=== PATIENT | male | born 1965 | race Caucasian/White ===

== ENCOUNTER → 2017-06-22 09:48 | Outpatient (CLI) | payer OTHER, SELFPAY ==
[2017-06-22 11:07] LABS: Alanine Aminotransferase 37 U/L (12-78); Albumin Level 4.1 gm/dL (3.4-5.0); Albumin/Globulin Ratio 1.5 (1.1-1.8); Alkaline Phosphatase 48 U/L (46-116); Anion Gap 11.5 mEq/L (5-15); Aspartate Amino Transferase 16 U/L (15-37); Bilirubin,Total 0.5 mg/dL (0.2-1.0); Blood Urea Nitrogen 10 mg/dL (7-18); Calcium 8.8 mg/dL (8.5-10.1); Carbon Dioxide 32 mmol/L (21.0-32.0); Chloride 106 mmol/L (98-107); Chol/HDL Ratio 2.1 (1-3.5); Cholesterol 165 mg/dL (140-200); Creatinine,Serum 0.78 mg/dL (0.70-1.30); Estimated Glomerular Filt Rate 104 ml/min (>60); GFR (African American) 126 ML/MIN (>60); Globulin 2.7 gm/dl (1.3-3.2); Glucose 86 mg/dL (74-106); HDL Cholesterol 79 mg/dL (27-67); LDL Cholesterol 75 mg/dL (0-130); Potassium 4.5 mmoL/L (3.5-5.1); Prostate Specific Ag Screen 0.8 ng/mL (0.0-4.0); Sodium 145 mmol/L (136-145); Total Protein,Serum 6.8 gm/dL (6.4-8.2); Triglycerides 54 mg/dL (30-200); VLDL Cholesterol 11 mg/dL (0-40)
== END ==
PROVIDERS: PCP Internal Medicine Adolescent Medicine; Visit Provider Internal Medicine Adolescent Medicine
DX: E78.5 Hyperlipidemia, unspecified (principal); Z00.00 Encounter for general adult medical examination without abnormal findings
CPT/HCPCS: 36415; 80053; 80061; G0103

== ENCOUNTER → 2017-11-11 15:46 | Outpatient (POV) | payer OTHER, SELFPAY | PROVIDERS: Visit Provider Physician Assistant | DX: Z00.00 Encounter for general adult medical examination without abnormal findings (principal) ==

== ENCOUNTER → 2018-01-06 13:01 | Outpatient (CLI) | payer OTHER, SELFPAY | PROVIDERS: PCP Internal Medicine Adolescent Medicine; Visit Provider Internal Medicine Adolescent Medicine | DX: G47.33 Obstructive sleep apnea (adult) (pediatric) (principal); G47.10 Hypersomnia, unspecified; R06.83 Snoring | CPT/HCPCS: 95806 ==

== ENCOUNTER → 2018-01-27 10:44 | Outpatient (CLI) | payer OTHER, SELFPAY ==
--- NOTE | 2018-01-27 10:47 | MR_ITS ---
MR cervical spine wo con, MR 3-d myelogram/MRCP ITS.REASON: CERVICAL RADICULOPATHY left-sided neck pain, left arm numbness and tingling ORDERING PHYSICIAN: Jose Farrell MD PATIENT AGE: 52 years Comparison: TECHNIQUE: Standard multiplanar multiecho sequences are performed without contrast. 3-D MIP and myelographic images are also rendered and reviewed FINDINGS: There is reversal of the lower cervical lordosis. This may be due to patient positioning or muscle spasm. The craniocervical junction has an unremarkable appearance. 3: Unremarkable. C3-C4: Unremarkable. C4-C5: Unremarkable. C5-C6: Degenerative disc disease with minimal bulging disc and uncovertebral hypertrophic change causing mild right and moderate left foraminal narrowing. There is borderline narrowing of the canal at this level at 11 mm without cord impingement . C6-C7: Degenerative disc disease with bulging disc and bilateral uncovertebral hypertrophy with canal stenosis of 10 mm without cord impingement. Moderate severe bilateral foraminal narrowing greater on the left.. Moderate bilateral lateral recess narrowing also present greater on the left. C7-T1: Unremarkable. No disc herniation evident. The spinal cord has unremarkable signal intensity. IMPRESSION: 1. C5-C6: Degenerative disc disease with minimal bulging disc and uncovertebral hypertrophic change causing mild right and moderate left foraminal narrowing. There is borderline narrowing of the canal at this level at 11 mm without cord impingement . 2. C6-C7: Degenerative disc disease with bulging disc and bilateral uncovertebral hypertrophy with canal stenosis of 10 mm without cord impingement. Moderate severe bilateral foraminal narrowing greater on the left.. Moderate bilateral lateral recess narrowing also present greater on the left. 3. No disc herniation
== END ==
PROVIDERS: Family Provider Internal Medicine Adolescent Medicine; PCP Internal Medicine Adolescent Medicine; Visit Provider Internal Medicine Adolescent Medicine
DX: M54.12 Radiculopathy, cervical region (principal)
CPT/HCPCS: 72141; 76376

== ENCOUNTER → 2018-06-03 08:16 | Outpatient (POV) | payer OTHER, SELFPAY | PROVIDERS: Visit Provider Dermatology | DX: Z00.00 Encounter for general adult medical examination without abnormal findings (principal) ==

== ENCOUNTER → 2018-08-11 07:38 | Outpatient (CLI) | payer OTHER, SELFPAY ==
[2018-08-11 08:15] LABS: Basophils # 0.1 K/mm3 (0-0.2); Eosinophils # 0.5 K/mm3 (0.0-0.4); Eosinophils % 11.8 % (0.1-12.0); Hematocrit 42.3 % (42.0-52.0); Hemoglobin 14.4 g/dL (14.1-18.0); Lymphocytes # 1.2 K/mm3 (0.7-4.5); Lymphocytes % 26.9 % (10-50); Mean Corpuscular Hemoglobin 31.3 pg (27.0-31.2); Mean Corpuscular Volume 92.1 fl (80-94); Mean Platelet Volume 7.4 fl (7.4-10.4); Monocytes # 0.3 K/mm3 (0.1-1.0); Monocytes % 5.7 % (1.7-9.3); Neutrophils # 2.4 K/mm3 (1.8-7.8); Neutrophils % 54.5 % (37.0-80.0); Platelet Count 201 K/mm3 (142-424); Red Cell Distribution Width 12.6 % (11.5-17.5); White Blood Count 4.5 K/mm3 (4.8-10.8)
[2018-08-11 08:53] LABS: Alanine Aminotransferase 35 U/L (12-78); Albumin Level 3.8 gm/dL (3.4-5.0); Albumin/Globulin Ratio 1.6 (1.1-1.8); Alkaline Phosphatase 43 U/L (46-116); Aspartate Amino Transferase 14 U/L (15-37); Bilirubin,Total 0.7 mg/dL (0.2-1.0); Blood Urea Nitrogen 11 mg/dL (7-18); Calcium 8.6 mg/dL (8.5-10.1); Carbon Dioxide 31 mmol/L (21.0-32.0); Chloride 106 mmol/L (98-107); Chol/HDL Ratio 2.6 (1-3.5); Cholesterol 164 mg/dL (140-200); Creatinine,Serum 0.77 mg/dL (0.70-1.30); Estimated Glomerular Filt Rate 105 ml/min (>60); GFR (African American) 127 ML/MIN (>60); Globulin 2.4 gm/dl (1.3-3.2); Glucose 102 mg/dL (74-106); HDL Cholesterol 62 mg/dL (27-67); LDL Cholesterol 87 mg/dL (0-130); Sodium 143 mmol/L (136-145); Thyroid Stimulating Hormone 1.86 uIU/ml (0.358-3.740); Total Protein,Serum 6.2 gm/dL (6.4-8.2); Triglycerides 76 mg/dL (30-200); VLDL Cholesterol 15 mg/dL (0-40)
[2018-08-11 12:50] LABS: Prostate Specific Ag Screen 0.7 ng/mL (0.0-4.0)
== END ==
PROVIDERS: Visit Provider Internal Medicine Adolescent Medicine
DX: Z00.00 Encounter for general adult medical examination without abnormal findings (principal); E78.5 Hyperlipidemia, unspecified; G47.30 Sleep apnea, unspecified
CPT/HCPCS: 36415; 80053; 80061; 84443; 85025; G0103

== ENCOUNTER → 2019-06-09 07:27 | Outpatient (CLI) | payer OTHER, SELFPAY ==
[2019-06-09 08:38] LABS: Basophils # 0.1 K/mm3 (0-0.2); Basophils % 1.2 % (0.1-2.0); Eosinophils # 0.4 K/mm3 (0.0-0.4); Hematocrit 47.5 % (42.0-52.0); Hemoglobin 15.6 g/dL (14.1-18.0); Lymphocytes # 1.2 K/mm3 (0.7-4.5); Mean Corpuscular HGB Conc 32.8 g/dL (31.8-35.4); Mean Corpuscular Hemoglobin 30.8 pg (27.0-31.2); Mean Corpuscular Volume 93.8 fl (80-94); Mean Platelet Volume 7.9 fl (7.4-10.4); Monocytes # 0.3 K/mm3 (0.1-1.0); Monocytes % 5.3 % (1.7-9.3); Neutrophils % 61.6 % (37.0-80.0); Platelet Count 234 K/mm3 (142-424); Red Blood Count 5.06 M/mm3 (4.60-6.20); Red Cell Distribution Width 12.7 % (11.5-17.5); White Blood Count 4.9 K/mm3 (4.8-10.8)
[2019-06-09 09:54] LABS: Alanine Aminotransferase 40 U/L (21-72); Albumin/Globulin Ratio 1.5 (1.1-1.8); Alkaline Phosphatase 49 U/L (46-116); Anion Gap 12.3 mEq/L (5-15); Aspartate Amino Transferase 25 U/L (15-37); Bilirubin,Total 0.7 mg/dL (0.2-1.0); Blood Urea Nitrogen 14 mg/dL (7-18); Calcium 8.9 mg/dL (8.5-10.1); Carbon Dioxide 31 mmol/L (21.0-32.0); Chloride 106 mmol/L (98-107); Chol/HDL Ratio 3.4 (1-3.5); Cholesterol 213 mg/dL (140-200); Creatinine,Serum 0.92 mg/dL (0.70-1.30); Estimated Glomerular Filt Rate 85 ml/min (>60); GFR (African American) 103 ML/MIN (>60); Globulin 2.7 gm/dl (1.3-3.2); Glucose 90 mg/dL (74-106); HDL Cholesterol 63 mg/dL (27-67); LDL Cholesterol 109 mg/dL (0-130); Potassium 4.3 mmoL/L (3.5-5.1); Sodium 145 mmol/L (137-145); Total Protein,Serum 6.7 g/dL (6.4-8.2); Triglycerides 207 mg/dL (30-200); VLDL Cholesterol 41 mg/dL (0-40)
== END ==
PROVIDERS: Visit Provider Internal Medicine Adolescent Medicine
DX: Z00.00 Encounter for general adult medical examination without abnormal findings (principal); E78.5 Hyperlipidemia, unspecified
CPT/HCPCS: 36415; 80053; 80061; 85025; G0103

== ENCOUNTER → 2019-06-09 08:10 | Outpatient (POV) | payer OTHER, SELFPAY | PROVIDERS: Visit Provider Dermatology | DX: Z00.00 Encounter for general adult medical examination without abnormal findings (principal) ==

== ENCOUNTER → 2019-09-01 08:04 | Outpatient (POV) | payer OTHER, SELFPAY | PROVIDERS: PCP Internal Medicine Adolescent Medicine; Visit Provider Physician Assistant | DX: Z00.00 Encounter for general adult medical examination without abnormal findings (principal) ==

== ENCOUNTER → 2020-07-12 08:45 | Outpatient (POV) | payer OTHER, SELFPAY | PROVIDERS: Visit Provider Dermatology | DX: Z00.00 Encounter for general adult medical examination without abnormal findings (principal) ==

== ENCOUNTER → 2020-11-12 11:27 | Outpatient (CLI) | payer OTHER, SELFPAY | PROVIDERS: Visit Provider Nurse Practitioner Family | DX: M70.32 Other bursitis of elbow, left elbow (principal) | CPT/HCPCS: 87070; 87205 ==

== ENCOUNTER → 2021-01-03 10:51 | Outpatient (CLI) | payer OTHER, SELFPAY ==
[2021-01-03 11:41] LABS: Chloride 102 mmol/L (98-107)
[2021-01-03 11:42] LABS: Potassium 4.8 mmoL/L (3.5-5.1); Sodium 141 mmol/L (136-145)
[2021-01-03 11:44] LABS: Alanine Aminotransferase 27 U/L (12-78); Albumin Level 4.4 g/dl (3.5-5.0); Albumin/Globulin Ratio 1.7 (1.1-1.8); Alkaline Phosphatase 57 U/L (38-126); Anion Gap 11.8 mEq/L (5-15); Aspartate Amino Transferase 30 U/L (17-59); Bilirubin,Total 0.7 mg/dl (0.2-1.3); Blood Urea Nitrogen 12 mg/dl (9-20); Carbon Dioxide 32 mmol/L (22.0-30.0); Estimated Glomerular Filt Rate 116 ml/min (>60); GFR (African American) 141 ML/MIN (>60); Globulin 2.6 g/dL (1.3-3.2)
[2021-01-03 11:45] LABS: Basophils # 0.1 K/mm3 (0-0.2); Basophils % 1.3 % (0.1-2.0); Calcium 9.4 mg/dl (8.4-10.2); Chol/HDL Ratio 2.8 (1-3.5); Cholesterol 208 mg/dl (140-200); Eosinophils # 0.4 K/mm3 (0.0-0.4); Eosinophils % 6.5 % (0.1-12.0); Glucose 80 mg/dl (74-100); HDL Cholesterol 74 mg/dl (40-60); Hematocrit 48.2 % (42.0-52.0); Hemoglobin 15.8 g/dL (14.1-18.0); Lymphocytes # 1.2 K/mm3 (0.7-4.5); Lymphocytes % 22.8 % (10-50); Mean Corpuscular HGB Conc 32.9 g/dL (31.8-35.4); Mean Corpuscular Volume 97.4 fl (80-94); Mean Platelet Volume 7.9 fl (7.4-10.4); Monocytes # 0.4 K/mm3 (0.1-1.0); Monocytes % 6.7 % (1.7-9.3); Neutrophils # 3.4 K/mm3 (1.8-7.8); Neutrophils % 62.7 % (37.0-80.0); Platelet Count 254 K/mm3 (142-424); Red Blood Count 4.95 M/mm3 (4.60-6.20); Triglycerides 101 mg/dl (30-150); VLDL Cholesterol 20 mg/dL (0-40); White Blood Count 5.4 K/mm3 (4.8-10.8)
[2021-01-03 11:56] LABS: Direct LDL Cholesterol 107.24 mg/dL (100-129)
[2021-01-04 12:21] LABS: PSA, Free 0.39 ng/mL; Prostate Specific Ag 0.9 ng/mL (0.0-4.0)
== END ==
PROVIDERS: Visit Provider Internal Medicine Adolescent Medicine
DX: Z00.00 Encounter for general adult medical examination without abnormal findings (principal); E78.5 Hyperlipidemia, unspecified
CPT/HCPCS: 36415; 80053; 80061; 84153; 84154; 85025

== ENCOUNTER → 2022-10-11 10:45 | Outpatient (CLI) | payer OTHER, SELFPAY ==
--- NOTE | 2022-10-11 10:52 | XR_ITS ---
FINAL REPORT CLINICAL HISTORY: ARTHRITIS FINDINGS: LEFT KNEE: Three views of the left knee were obtained. There is no acute fracture or dislocation. There is mild degenerative change of the medial compartment. There is a moderate sized joint effusion present. Soft tissues are unremarkable. IMPRESSION: Mild degenerative change of the medial compartment with a moderate sized joint effusion present. Reviewed, Interpreted and Dictated by Vipul Arizmendi III, MD Transcribed by Lovely Rosales Authenticated and [facility]
--- NOTE | 2022-10-11 10:52 | XR_ITS ---
FINAL REPORT CLINICAL HISTORY: ARTHRITIS FINDINGS: Three views of the right knee reveal no evidence of fracture or dislocation. The bony alignment is normal. Mild tricompartment degenerative change is present. There is a moderate sized joint effusion present. No localized soft tissue abnormality is identified. IMPRESSION: Mild tricompartment degenerative change of the knee with a moderate sized joint effusion. Reviewed, Interpreted and Dictated by Vipul Arizmendi III, MD Transcribed by Lovely Rosales Authenticated and [facility]
== END ==
PROVIDERS: PCP Internal Medicine Adolescent Medicine; Visit Provider Internal Medicine Adolescent Medicine
DX: M17.0 Bilateral primary osteoarthritis of knee (principal)
CPT/HCPCS: 73562

== ENCOUNTER → 2023-07-22 09:06 | Outpatient (CLI) | payer BC, SELFPAY | PROVIDERS: PCP Nurse Practitioner Family; Visit Provider Nurse Practitioner Family | DX: G47.33 Obstructive sleep apnea (adult) (pediatric) (principal); R06.83 Snoring | CPT/HCPCS: G0399 ==

== ENCOUNTER 2023-10-24 12:42 | Outpatient (CLI) | payer BC, SELFPAY ==
--- NOTE | 2023-10-24 12:50 | XR_ITS ---
FINAL REPORT CLINICAL HISTORY: right knee pain COMPARISON: None FINDINGS: Three views of the right knee were obtained. There is no acute fracture or dislocation. The joint spaces are well preserved. There is no acute soft tissue abnormality. IMPRESSION: No acute abnormality identified. Reviewed, Interpreted and Dictated by Sandy Tran MD Transcribed by Galilea Rodriguez Authenticated and [facility]
--- NOTE | 2023-10-24 12:50 | XR_ITS ---
FINAL REPORT CLINICAL HISTORY: left knee pain COMPARISON: None FINDINGS: Three views of the left knee were obtained. There is no acute fracture or dislocation. There are mild degenerative changes, greatest in the medial compartment. There is no acute soft tissue abnormality. IMPRESSION: Degenerative changes without acute abnormality identified. Reviewed, Interpreted and Dictated by Sandy Tran MD Transcribed by Galilea Rodriguez Authenticated and [facility]
== END 2023-10-24 23:59 | disposition home or self-care (01) ==
PROVIDERS: PCP Internal Medicine Adolescent Medicine; Visit Provider Physician Assistant Surgical
DX: M25.562 Pain in left knee (principal); M25.561 Pain in right knee
CPT/HCPCS: 73562

== ENCOUNTER 2024-02-04 11:21 | Outpatient (POV) | payer SELFPAY | END 2024-02-04 23:59 | disposition home or self-care (01) | LOC: SC 11:21 | PROVIDERS: Visit Provider Dermatology | DX: Z00.00 Encounter for general adult medical examination without abnormal findings (principal) ==

== ENCOUNTER 2024-02-17 13:15 | Day surgery (SDC) | payer BC, SELFPAY ==
[2024-02-11 15:38] VITALS: BMI 27.7
[2024-02-17 13:33] VITALS: BP 138/84; PULSE 67; RESP 18; TEMP 36.5; O2SAT 100
[2024-02-17] MEDS: LACTATED RINGERS 1000ML 1,000 ML 25 ML IV (13:45)
--- NOTE | 2024-02-17 13:51 | P.HP_ITS ---
[facility] Disclaimer: The information contained in this section may have been updated after the patient was seen, as this information can be updated by other users. Medical History (Updated 02/17/24 @ 14:39 by Jose Allen II, MD) HLD (hyperlipidemia) ROGER (obstructive sleep apnea) Surgical History History of colonoscopy History of removal of testicle Family History Other Cancer Coronary artery disease Heart attack Hyperlipidemia Social History (Updated 02/17/24 @ 13:41 by Ana Rosa Ward, ELROY) Smoking Status: Former smoker smoking status stop date: 15 yrs ago alcohol intake: never substance use type: denies use current occupational status: employed Travel in the last 8 weeks: Inside the [place] household members: spouse housing: house marital status: number of children: 4 caffeine: Yes Other Medical History Have you received the Pneumonia Vaccine: No Review of Systems Review of Systems Review of systems (narrative): Negative *Cardiovascular Comments: Negative *Gastrointestinal Comments: Negative *Genitourinary Comments: Negative *Musculoskeletal Comments: Negative *Neurologic Comments: Negative Meds Home Medications and Allergies Home Medications ?Medication ?Instructions ?Recorded ?Confirmed ?Type ezetimibe 10 mg tablet (Zetia) 10 mg PO DAILY 11/06/22 02/17/24 History simvastatin 40 mg tablet 40 mg PO DAILY 11/06/22 02/17/24 History ascorbate calcium (vitamin C) 500 500 mg PO DAILY 08/08/23 02/17/24 History mg tablet aspirin 81 mg tablet,delayed 81 mg PO DAILY 08/08/23 02/17/24 History release (Adult Low Dose Aspirin) eszopiclone 1 mg tablet (Lunesta) 1 mg PO HS 08/08/23 02/17/24 History bimligfn-be-eehzl 300 mcg-K 60 1 tab PO DAILY 08/08/23 02/17/24 History mcg-lycop 600 mcg-lutein 300 mcg tablet (Centrum Silver Men) sod picosulf 10 mg-magnes 3.5 175 ml PO DAILY Bowel Prep 2 doses 02/07/24 Rx gram-citric 12 gram/175 mL oral #350 mL solution (Clenpiq) New Prescriptions to Start Prescriptions: Allergies Allergy/AdvReac Type Severity Reaction Status Date / Time No Known Allergies Allergy Verified 02/17/24 13:31 Exam Data for Last 24 hours Vital signs and Labs for Last 24 Hours: Temp Pulse Resp BP Pulse Ox O2 Del Method 97.7 F 67 18 138/84 100 Room Air 02/17/24 13:33 02/17/24 13:33 02/17/24 13:33 02/17/24 13:33 02/17/24 13:33 02/17/24 13:33 *Routine HEENT Exam Head: Present normocephalic Eye: Present EOMI and PERRL ENT: Present mucous membranes moist *Routine Neck Exam Neck: Present supple *Routine Respiratory Exam Respiratory: Present CTA bilaterally *Routine Cardiovascular Exam Cardiovascular: Present RRR *Routine Abdominal Exam Abdominal: Present soft and normoactive bowel sounds; Absent tenderness *Routine Rectal Exam Rectal:: deferred *Routine Genitalia Exam Genitalia:: deferred *Routine Extremities Exam Extremities: Absent cyanosis, clubbing or edema *Routine Skin Exam Skin: Present warm; Absent rash *Routine Neurological Exam Neurological: Present alert and oriented X3
--- NOTE | 2024-02-17 14:24 | EXP.ANES.CKL ---
[facility] Disclaimer: The information contained in this section may have been updated after the patient was seen, as this information can be updated by other users. Medical History HLD (hyperlipidemia) ROGER (obstructive sleep apnea) Surgical History History of colonoscopy History of removal of testicle Family History Other Cancer Coronary artery disease Heart attack Hyperlipidemia Social History (Updated 02/17/24 @ 13:41 by Ana Rosa Ward RN) Smoking Status: Former smoker smoking status stop date: 15 yrs ago alcohol intake: never substance use type: denies use current occupational status: employed Travel in the last 8 weeks: Inside the [place] household members: spouse housing: house marital status: number of children: 4 caffeine: Yes [facility] Anesthesia Checklist Patient Identification Patient Identification: Arm Band Structural Data Admitted From: Home Planned Operative Procedure/s: Colonoscopy Consent for Planned Operative Procedure(s) Verified: Yes Verified Documents: Surgical Consent and History and Physical NPO Status Verified Time NPO: 00:00 Additional verifications Anesthesia Reactions: No Airway Assessment Mallampati Score:: Class II C-Spine Mobility Assessed: Yes TMJ Mobility Assessed: Yes Dentition: Good Dentition Neurological Assessment Level of Consciousness: Awake, Alert and Appropriate Anesthesia Plan Anesthesia Risk discussed: Yes Anesthesia Plan: Verified ASA Class: II Anesthesia Type: MAC
[2024-02-17 14:32] VITALS: O2SAT 100
--- NOTE | 2024-02-17 14:38 | P.HP_ITS ---
History of Present Illness *Admission Date: 02/17/24 *Reason for visit:: Screening *History of present illness: Mr. Mcdaniels is a 58-year-old gentleman who is here for screening colonoscopy. His last colonoscopy was 10 years ago. The examination is deemed medically necessary for screening. The patient has been seen, interviewed and examined prior to the procedure by both myself and the anesthesia provider. [facility] Disclaimer: The information contained in this section may have been updated after the patient was seen, as this information can be updated by other users. Medical History (Updated 02/17/24 @ 14:39 by Jose Allen II, MD) HLD (hyperlipidemia) ROGER (obstructive sleep apnea) Surgical History History of colonoscopy History of removal of testicle Family History Other Cancer Coronary artery disease Heart attack Hyperlipidemia Social History (Updated 02/17/24 @ 13:41 by Ana Rosa Ward RN) Smoking Status: Former smoker smoking status stop date: 15 yrs ago alcohol intake: never substance use type: denies use current occupational status: employed Travel in the last 8 weeks: [place] the [place] household members: spouse housing: house marital status: number of children: 4 caffeine: Yes Other Medical History Have you received the Pneumonia Vaccine: No Review of Systems Review of Systems Review of systems (narrative): Negative *Cardiovascular Comments: Negative *Gastrointestinal Comments: Negative *Genitourinary Comments: Negative *Musculoskeletal Comments: Negative *Neurologic Comments: Negative Meds Home Medications and Allergies Home Medications ?Medication ?Instructions ?Recorded ?Confirmed ?Type ezetimibe 10 mg tablet (Zetia) 10 mg PO DAILY 11/06/22 02/17/24 History simvastatin 40 mg tablet 40 mg PO DAILY 11/06/22 02/17/24 History ascorbate calcium (vitamin C) 500 500 mg PO DAILY 08/08/23 02/17/24 History mg tablet aspirin 81 mg tablet,delayed 81 mg PO DAILY 08/08/23 02/17/24 History release (Adult Low Dose Aspirin) eszopiclone 1 mg tablet (Lunesta) 1 mg PO HS 08/08/23 02/17/24 History rtmxjiin-ae-dznqi 300 mcg-K 60 1 tab PO DAILY 08/08/23 02/17/24 History mcg-lycop 600 mcg-lutein 300 mcg tablet (Centrum Silver Men) sod picosulf 10 mg-magnes 3.5 175 ml PO DAILY Bowel Prep 2 doses 02/07/24 Rx gram-citric 12 gram/175 mL oral #350 mL solution (Clenpiq) New Prescriptions to Start Prescriptions: Allergies Allergy/AdvReac Type Severity Reaction Status Date / Time No Known Allergies Allergy Verified 02/17/24 13:31 Exam Data for Last 24 hours Vital signs and Labs for Last 24 Hours: Temp Pulse Resp BP Pulse Ox O2 Del Method O2 Flow Rate 97.7 F 67 18 138/84 100 Nasal Cannula 5 02/17/24 13:33 02/17/24 13:33 02/17/24 13:33 02/17/24 13:33 02/17/24 13:33 02/17/24 14:32 02/17/24 14:32 *Routine HEENT Exam Head: Present normocephalic Eye: Present EOMI and PERRL ENT: Present mucous membranes moist *Routine Neck Exam Neck: Present supple *Routine Respiratory Exam Respiratory: Present CTA bilaterally *Routine Cardiovascular Exam Cardiovascular: Present RRR *Routine Abdominal Exam Abdominal: Present soft and normoactive bowel sounds; Absent tenderness *Routine Rectal Exam Rectal:: deferred *Routine Genitalia Exam Genitalia:: deferred *Routine Extremities Exam Extremities: Absent cyanosis, clubbing or edema *Routine Skin Exam Skin: Present warm; Absent rash *Routine Neurological Exam Neurological: Present alert and oriented X3 Assessment and Plan *Assessment and plan (1) Screening for colon cancer: Status: Acute Category: Medical Code(s): Z12.11 - Encounter for screening for malignant neoplasm of colon Plan A/P: 1. Screening for colon cancer is the preprocedural diagnosis. The patient will be anesthetized/sedated using MAC sedation. The patient has been seen and examined. Cardiac and lung assessment prior to the examination is stable. Proceed with planned colonoscopy
--- NOTE | 2024-02-17 14:56 | HMH.PROCNOTE ---
[facility] Procedure Note Date: 02/17/24 Time: 14:56 Procedure Note:: Colonoscopy Procedure Report: Colonoscopy with cold snare polypectomy and Endo Clip placement Endoscopist: Jose Allen II, MD Referring physician: Jose Farrell M.D. Date of Procedure: February 17, 2024 Equipment: Olympus 190 variable stiffness pediatric colonoscope Sedation: MAC sedation Indication: Mr. Mcdaniels is a 58-year-old gentleman who is here for follow-up screening/surveillance colonoscopy. His last colonoscopy was 10 years ago. He reports no abdominal pain, weight loss, change in his bowel habits or rectal bleeding. He reports no family history of colon cancer. Procedure: Prior to the procedure, a history and physical exam was performed, and patient's medications and allergies were reviewed. The risks, benefits and alternatives of the sedation and procedure were discussed with the patient. All questions were answered and informed consent was obtained. The patient was brought to the procedure room. Patient identification and proposed procedure were verified by the physician and the nurse. The patient was placed in a left lateral decubitus position and the scope was passed under direct vision. Throughout the procedure, the patient's blood pressure, pulse, and oxygen saturations were monitored continuously. The colonoscopy was accomplished without difficulty. The patient tolerated the procedure well. Findings: On digital rectal examination there was normal rectal tone. There were no external hemorrhoids. The colonoscope was introduced through the anal canal to the rectum and advanced to the cecum. The ileocecal valve and appendiceal orifice were identified. The scope was advanced a short distance into the ileum which appeared grossly normal. The scope was then withdrawn into the colon. There were 2 diminutive 3 mm polyps in the transverse colon removed via cold snare polypectomy. There was some minor heme at the polypectomy site of the second removed polyp and 2 endoclips were placed over the polypectomy site with excellent hemostasis. The remaining cecum, ascending, transverse, descending, sigmoid and rectum were grossly normal. There were no mucosal abnormalities identified. Upon retroflexion within the rectum there were grade 2 internal hemorrhoids.The preparation was excellent throughout with [place] Preparation Score of 9. The cecal time was 11 minutes. Impression: 1. Diminutive 3 mm transverse colon polyps x 2 2. Grade 2 internal hemorrhoids Plan: I will follow-up the polyp histology and recommend repeat surveillance colonoscopy again in 7 to 10 years. I would encourage psyllium bulking fiber supplementation on a maintenance basis.
[2024-02-17 15:01] VITALS: BP 125/79; PULSE 75; RESP 18; TEMP 36.6; O2SAT 97
[2024-02-17 15:11] VITALS: BP 137/99; PULSE 72; RESP 18; O2SAT 95
[2024-02-17 15:21] VITALS: BP 138/86; PULSE 62; RESP 18; O2SAT 98
[2024-02-17 15:31] VITALS: BP 138/88; PULSE 60; RESP 18; O2SAT 97
== END 2024-02-17 15:31 | disposition home or self-care (01) ==
PROVIDERS: PCP Internal Medicine Adolescent Medicine; Visit Provider Internal Medicine Gastroenterology
PROC: (CPT 45385; principal; 2024-02-17 14:30)
DX: K63.5 Polyp of colon (principal); K64.1 Second degree hemorrhoids; Z12.11 Encounter for screening for malignant neoplasm of colon
CPT/HCPCS: 45385; J7120

== ENCOUNTER 2024-04-13 07:18 | Outpatient (CLI) | payer BC, SELFPAY ==
--- NOTE | 2024-04-13 | CA_ITS ---
APPROVED REPORT Exam: Exercise Treadmill Technologist: Sara Graf Ht: 6 ft 2 in Wt: 223 lbs BSA: 2.28 m2 HR: 77 bpm Stress Test Details HR Resting HR: 77 bpm Max Heart Rate (APMHR): 160.788410 bpm Max HR Achieved: 147 bpm Target HR (85% APMHR): 136.478354 bpm % of APMHR: 91.88 Recovery HR: 98 bpm BP Resting BP: 140.0/95.0 mmHg Max BP: 177.0/97.0 mmHg Recovery BP: 177.0/97.0 mmHg ECG Resting ECG: NSR Clinical Highest Stage Achieved: IV Stress ECG Conclusion Max HR: 158 % of PM: 99 Max BP: 158/100 METs: 10.0 Test stopped due to: Leg pain/knee pain Symptoms: no CP. Arrhythmias/Ectopy: Occasional PVC's. ST-T Changes: <1.5mm ST Segment changes. Conclusion: Negative stress test. Electronically signed by : Inga Newton MD 04/13/2024 11:44:07
--- NOTE | 2024-04-13 07:19 | NM_ITS ---
APPROVED REPORT Exam: Nuclear Stress Test Indication: hyperlipidemia, fm hx, c.p., abn ekg Patient Location: Outpatient Stress Tech: Sara Tsang [place] Tech:WINIFRED Weathers RT (R)(N)(M) Ht: 6 ft 1 in Wt: 210 lbs HR: 77 bpm BP: 140/95 mmHg BSA: 2.20 m2 TID: 1.06 BMI: 27.7 History: hyperlipidemia, fm hx, c.p., abn ekg Procedure: Patient exercised on Roe protocol 10:00 minutes and sec, resting heart rate 77 bpm, resting blood pressure 140/95 mmHg, with exercise maximum heart rate achived was 158 bpm which is 99 % of the maximum predicted heart rate and blood pressure was 158/100 mmHg. Test was stopped due to fatigue. Patient denied any complaint of chest pain. Patient has Average exercise capacity, achieved 12.1 METs of workload on treadmill, the blood pressure response to exercise was normal. Cardiac Stress and Resting SPECT Images: Cardiac Stress and Resting SPECT images were obtained using technetium 99m Myoview 31.1 mCi stress and 10.76 mCi at rest. Resting and stress imaging in supine and prone positions demonstrate no evidence of fixed or reversible perfusion defects. Gated imaging demonstrates normal global and regional LV systolic function. LVEF is calculated at 52%. Conclusion: No evidence of fixed or reversible perfusion defects. Gated imaging demonstrates normal global and regional LV systolic function. LVEF is calculated at 52%. Electronically signed by : Inga Newton MD 04/13/2024 11:42:44
--- NOTE | 2024-04-13 07:19 | CA_ITS ---
APPROVED REPORT EXAM: Comprehensive 2D, Doppler, and color-flow Echocardiogram Power Reactor Supervisor: Lillian Cerna RDCS Ht: 6 ft 0 in Wt: 223lbs BSA: 2.23 BP: 149/103 mmHg Indications: ABN EKG,HTN,CP M-Mode Dimensions RVDd 3.14 cm (0.9-2.6) LA Diam 4.20 cm (1.9-4.0) LVDd 5.63 cm (3.5-5.7) LVDs 4.02 cm (3.5-5.7) IVSd 0.68 cm (0.6-1.1) PWd 0.76 cm (0.6-1.1) EF (Teich) 54.50% FS 28.60% EDV (Teich) 155.60 mL TAPSE 1.94 (<1.7) ESV (Teich) 70.80 mL LV Diastology E Decel Time 190 (160-240 msec) E/A Ratio 1.2 Mitral Valve MV E Max Anatoly. 58.0 (40-130 cm/s) MV A Velocity 48.0 (40-130 cm/s) E/A Ratio 1.21 MV PHT 56.0 ms Left Ventricle The left ventricle is normal size. The left ventricular systolic function is normal. The left ventricular ejection fraction is within the normal range. There is normal left ventricular wall thickness. There is normal LV segmental wall motion. The left ventricular diastolic function is normal. LVEF is 55%. Right Ventricle The right ventricle is normal size. The right ventricular systolic function is normal. Atria The left atrium size is normal. The right atrium size is normal. There is no Doppler evidence of interatrial shunt. Aortic Valve The aortic valve is mildly thickened. There is no aortic valvular stenosis. No aortic regurgitation is present. Mitral Valve The mitral valve is normal in structure. No evidence of mitral valve stenosis. Trace mitral regurgitation. Tricuspid Valve Tricuspid valve is grossly normal in structure and function. Trace tricuspid regurgitation. There is insufficient TR jet to estimate RVSP. Pulmonic Valve The pulmonary valve is normal in structure. Mild pulmonic regurgitation. Great Vessels The aortic root is normal in size. IVC is normal in size and collapses >50% with inspiration. Pericardium There is no pericardial effusion. Other Information Study Quality: Adequate Conclusion Normal biventricular systolic function. Mild PI. Electronically signed by : Inga Newton MD 04/26/2024 11:07:28
[2024-04-13] MEDS: SODIUM CHLORIDE 0.9% 10ML SYR (RAD ONLY) 10 ML IV ×2 (07:30→09:15)
[2024-04-13] MEDS: ISOTOPE MYOVIEW (PER STUDY) 1 DOSE IV (11:28)
== END 2024-04-13 23:59 | disposition home or self-care (01) ==
LOC: RAD 07:19
PROVIDERS: PCP Internal Medicine Adolescent Medicine; Visit Provider Nurse Practitioner
DX: R07.89 Other chest pain (principal); R94.31 Abnormal electrocardiogram [ECG] [EKG]
CPT/HCPCS: 78452; 93017; 93018; 93306; A9502

== ENCOUNTER 2024-11-09 07:29 | Outpatient (CLI) | payer BC, SELFPAY ==
--- OUTSIDE RECORDS SUMMARY | 2024-11-09 07:31 | XMS_ITS | Encounter Summary ---
Author Organization Healthcare Address [address] [id number] Care Team Providers Care Art Educator Name Role Phone Jose Nunn MD Primary Care Provider [phone] Reason for Referral * Consultation (Routine) - Closed Specialty Diagnoses / Procedures Referred By Contac t Referred To Contact Dentist / Pain Medicine Diagnoses Obstructive sleep apnea (adult) (pediatric) Xiomara Aparicio MD [address] [place] [address] Phone: tel: fax: Adriana Zavala, DDS [address] [facility] [address] [place] [address] Phone: tel: fax: Referral ID Status Reason Start Date Expiration Date Visits Re quested Visits Authorized [id number] Closed 08/08/2023 02/06/2025 1 1 Encounter Details Date Type Department Care Team (Late st Contact Info) Description 08/08/2023 Community [facility] [address] [place] [address] Xiomara Aparicio MD [address] [place] [address] Obstructive sleep apnea (adult) (pediatric) (Primary Dx) Social History Tobacco Use Types Packs/Day Years Used Date Smoking Tobacco: Never Assessed Sex and Gender Information Value Date Recorded Sex Assigned at Not on file Legal Sex Male 6:34 PM EDT Gender Identity Not on file Sexual Orientation Not on file documented as of this encounter Plan of Treatment Scheduled Referrals Name Type Priority Associated Diagnoses Order Schedule Ambulatory Referral to Orofacial Pain Outpatient Referral Routine Obstructive sleep apnea (adult) (pediatric) Expected: 08/08/2023 (Approximate), Expires: 02/06/2025 documented as of this encounter Visit Diagnoses Diagnosis Obstructive sleep apnea (adult) (pediatric)- Primary documented in this encounter Care Teams Art Educator Relationship Specialty Start Date End Date Jose Nunn MD [address] [place] [address] PCP - General 09/09/20 documented as of this encounter
--- OUTSIDE RECORDS SUMMARY | 2024-11-09 07:31 | XMS_ITS | Clinical Summary ---
Author Organization Healthcare Address [address] [place] [address] Care Team Providers Care Hotel Reservationist Name Role Phone Jose Nunn MD Primary Care Provider [phone] Allergies No known active allergies Medications aspirin (Silver Low Dose) 81 MG EC tablet 1 tablet (81 mg). 08/18/2014 Active simvastatin (Zocor) 40 MG tablet Take 1 tablet (40 mg) by mouth 1 (one) time each day. 06/11/2023 Active multivitamin with minerals (Centrum) 9-200 mg-mcg tablet split tablet 08/18/2014 Active ezetimibe (Zetia) 10 MG tablet Take 1 tablet (10 mg) by mouth 1 (one) time each day. 06/11/2023 Active eszopiclone (Lunesta) 2 MG tablet Take 1 tablet (2 mg) by mouth every night. 07/25/2023 Active Social History Tobacco Use Types Packs/Day Years Used Date Smoking Tobacco: Former Cigarettes 0.5 15 0 04/29/1980 - 04/29/1995 Alcohol Use Standard Drinks/Week Comments Yes 20 (1 standard drink = 0.6 oz pu re alcohol) Sex and Gender Information Value Date Recorded Sex Assigned at Not on file Legal Sex Male 6:34 PM EDT Gender Identity Not on file Sexual Orientation Not on file Last Filed Vital Signs Vital Sign Reading Time Taken Comments Blood Pressure 121/79 08/19/2023 2:38 PM EDT Pulse 64 08/19/2023 2:38 PM EDT Temperature - - Respiratory Rate - - Oxygen Saturation - - Inhaled Oxygen Concentration - - Weight 99.8 kg (220 lb) 08/19/2023 2:38 PM EDT Height - - Body Mass Index - - Plan of Treatment Health Maintenance Due Date Last Done Comments Dental Oral Exam 1963 Dental Prophylaxis 1963 Dental X-Ray: Bitewings 1963 Dental X-Ray: Full Mouth 1963 [facility]-Depression Screening 1963 [facility]-HIV Screening 1963 [facility]-Hepatitis C Screening 1963 [facility]-/Child/Adol SDOH Screenings 1963 [facility]- SDOH Screenings 1981 [facility]-Adult SDOH Screenings 1981 CT Colonography 2008 Colonoscopy 2008 FIT-DNA 2008 FIT 2008 FOBT 2008 Sigmoidoscopy 2008 [facility]-Colorectal Cancer Screening 2008 [facility]-Pneumococcal Vaccine: 50+ Years (1 of 1 - PCV) 2013 VIB-INTAX-27 Vaccine (4 - 2023- season) 2023 03/20/2021, 08/18/2020, 07/20/2020 [facility]-Influenza Vaccine (#1) 12/28/202403/04, 03/01/2022, 02/28/2021, Additional history exists [facility]-DTaP,Tdap,and Td Vaccines (2 - Td or Tdap) 11/07/2031 11/06/2021 [facility]-RSV Vaccine: 60+ Years or (1 - 1-dose 75+ series) 2038 [facility]-Zoster Vaccines Completed 03/01/2022, HPV Vaccines Aged Out No longer eligi ble based on patient's age to complete this topic [facility]-HIB Vaccines Aged Out No longer e ligible based on patient's age to complete this topic [facility]-Hepatitis A Vaccines Aged Out No longer eligible based on patient's age to complete this topic [facility]-IPV Vaccines Aged Out No longer e ligible based on patient's age to complete this topic [facility]-Rotavirus Vaccines Aged Out No lo nger eligible based on patient's age to complete this topic Insurance [employer] Care Teams Hotel Reservationist Relationship Specialty Start Date End Date Jose Nunn MD [address] [place] [address] PCP - General 09/09/20
--- OUTSIDE RECORDS SUMMARY | 2024-11-09 07:31 | XMS_ITS | Clinical Summary ---
Author Organization [facility] Address [address] [place] [address] Phone Care Team Providers Care Senior Storage Administrator Name Role Phone Jose Farrell MD Primary Care Provider [phone] Medications No known medications Active Problems No known active problems Social History Tobacco Use Types Packs/Day Years Used Date Smoking Tobacco: Never Assessed Sex and Gender Information Value Date Recorded Sex Assigned at Not on file Legal Sex Male 4:15 PM EDT Gender Identity Not on file Sexual Orientation Not on file Obstetrics History Plan of Treatment Health Maintenance Due Date Last Done Comments Annual Wellness Exam 1966 Hepatitis C Screening 1981 DTaP/TDaP/Td (1 - Tdap) 1982 Cologuard 2008 Colon Cancer Screening 2008 Colonoscopy 2008 FIT 2008 Sigmoidoscopy 2008 Virtual Colonography 2008 Pneumococcal Vaccine 50+ (1 of 1 - PCV) 2013 Zoster (1 of 2) 2013 COVID-19 Vaccine ( - 2023-2 5 season) 2023 Influenza Vaccine (#1) 2024 Hepatitis B Vaccine Aged Out No longe r eligible based on patient's age to complete this topic Meningococcal B Vaccine Aged Out No l onger eligible based on patient's age to complete this topic Goals Goal Patient Goal Type Associated Problems Recent Progress Patient-Stated? Author Maintain a healthy diet, exercise regularly and maintain an ideal body weight General No Amina Guevara CMA Insurance Care Teams Senior Storage Administrator Relationship Specialty Start Date End Date Jose Farrell MD [address] [place] [address] PCP - General Internal Medicine-Adolescent Medicine 12/05/15
--- OUTSIDE RECORDS SUMMARY | 2024-11-09 07:31 | XMS_ITS | Data Portability ---
Author Organization [facility] [facility] Address [address] [address] [place] [address] Care Team Providers Care Soaking Room Operator Name Role Phone MARTINEZJOSE AWAD Primary Care Provider [phone] Assessment Encounter Date Assessment Date Assessment LastModified by Organization Details LastModified Time 04/07/2018 04/07/2018 Mr. Mcdaniels is a 52 year old man with neck pain and left C7 radiculopathy. He did not have any imaging to review today, however I reviewed the report of the MRI which shows multilevel degenerative changes with left C6/7 disc herniation and C7 nerve compression. He is overall improving symptom herndon, however may be plateauing in symptom relief with conservative management. I will plan to see him back in 4 weeks time for repeat evaluation. If his symptoms have continued to plateau or worsen, he will be a good candidate for C6/7 anterior cervical discectomy and fusion. He will bring his MRI on his next visit. [email or web address] Not available 04/07/2018 09:15:23 Plan of Treatment Reminders Order Date Submit Date Provider Last Modified By Organization Details Last Modified Time Details Appointments None recorded. Lab None recorded. Referral None recorded. Procedures None recorded. Surgeries None recorded. Imaging None recorded. Medication Orders Medrol (Rich) 4 mg tablets in a dose pack [address] [facility], [address] [place] [address] [place], [id number], 8 12:38:06 Patient TargetsNo targets recorded. Patient InstructionsNo instructions recorded. Reason for Referral None Reported. Results Created Date Observation Date Name Description Value Unit Range Abnormal Flag Note LastModifiedBy Organization Detail LastModifiedTime 02/04/20 18 01/27/2018 MRI, cervi jose spine , w/o contr ast No observ ation record ed. raya Not Available 2017 15:43:25 Result Notes None recorded. Procedures Surgical History Date Name Laterality Status Provider Name and Address Organization Details Recorded Time 02/15/20 Interpretation completed DES BAI PA-C [address] [place], [address], [facility] 02/14/2018 12:40:16 Removal of testis completed Clara Zambrano [facility] 02/14/2018 11:30:22 Imaging Results None recorded. Procedure Notes None recorded. Medical Equipment None Reported. Allergies No known drug allergies Medications Name Sig Start Date Stop Date Status Note LastModified by Organization Details LastModified Time Medrol (Rich) 4 mg tablets in a dose pack Take 1 dose pk by oral route. 2017 active Not Available Not Available Not Avai lable simvastatin 40 mg tablet Take 1 tablet every day by oral route. active Not Available Not Available No t Available zolpidem 5 mg tablet Take 0.5 tablets every day by oral route at bedtime. active Not Available Not Available No t Available ezetimibe 10 mg tablet Take 1 tablet every day by oral route. active Not Available Not Available No t Available multivitamin active Not Available Not Available Not Available Adult Low Dose Aspirin active Not Available Not Available Not Available Vitals Date Recorded Body height Body mass index (BMI) Body weight Systolic And Diastolic Provider Name and Address Organization Details Last Updated DateTime 02/14/2018 185.42 cm 27 kg/m2 06566.44 g 130/84 mm[Hg] Clara Zambrano [facility] 02/14/2018 11:28:31 Date Recorded Body height Body mass index (BMI) Body weight Systolic And Diastolic Provider Name and Address Organization Details Last Updated DateTime 04/07/2018 185.42 cm 27 kg/m2 05423.44 g 122/80 mm[Hg] Clara Zambrano [facility] 04/07/2018 08:54:31 Social History Question Answer Notes LastModified by Organizat ion Details LastModified Time Tobacco Smoking Status Former Smoker Clara jang [facility] 02/14/2018 11:30:07 What Was The Date Of Your Most Recent Tobacco Screening? 04/07/2018 Information n ot available 06/16/2019 Sex: Unknown Functional Status None recorded. Mental Status None recorded. Family History Nothing Reported. Medical History Condition Response Cancer Y Sleep Apnea Y Past Encounters Encounter ID Performer Location Encounter Start Date Encounter Closed Date Diagnosis/Indication Diagnosis SNOMED-CT Code Diagnosis ICD10 Code Diagnosis Note [id number] PATRICK CHAVEZ JR, MD NEUROSURG [facility] [address] [place] [address] 02/14/2018 11:15:40 02/21/2018 11:25:07 Cervical spondylosis with radiculopathy 858639693 M47.22 Mr. Mcdaniels is a pleasant 52 year old gentleman who presents with 3 months of neck and left C7 radiculopa thy. His MRI images were reviewed in the office today. He has C6-7 spondylosi s with severe left greater than right neural foraminal stenosis. There are also similar, but milder findings at C5-6. This correlates well with his symptomato logy. His exam is nonfocal. His triceps strength is strong and symmetric. He is not myelopathi c. No urgent surgical interventi on at this time. He has not had much conservati ve therapy. Trial of physical therapy with cervical traction and a Medrol Dosepak. He may use anti-infla mmatories as needed after he has completed the steroids. Will have him follow-up in 6 weeks to assess his progress. I told him that if he is not improving by that time, we will consider the options of a cervical epidural injection versus an ACDF. I returned a CD of his MRI images back table. Released back with him at his next visit. He is happy with this plan. Thank you for having him see us today. [id number] PATRICK CHAVEZ JR, MD NEUROSURG [facility] [address] [place] [address] 04/07/2018 08:36:21 04/10/2018 11:57:11 Herniation of nucleus pulposus of cervical intervertebral disc [id number] M50.20 Health Concerns Section Related Observation LastModified by Organization Detai ls LastModified Time None Recorded Concern Status LastModified by Organization Details LastModified Time None Recorded Advance Directives Directive None Recorded Payers Insurance Date Sequence Insurance Name Policy Number Policy Wilkerson Covered Member ID Wilkerson Member ID Guarantor Name 04/10/2018 1 R [id number] Robin Mcdaniels [id number] Robin Mcdaniels Notes Date Note Type Note Provider Name and Address Organization Details Recorded Time 02/14/2018 text/html Mr. Arslan duff nts to clinic at the request of Dr. Jose Farrell for evaluation of neck and left arm pain. He is accompanied today by his . He is a pleasant right-hand dominant 52-year-old gentleman who presents for 3 months of symptoms. He states his symptoms started after a fall while on vacation. He describes left-sided posterior neck pain that radiates over the back of the shoulder and down the posterior lateral left arm and extending into the thumb and second and third digits. It is accompanied with some numbness and tingling. It is worse with turning his head. Alexa if he holds his left arm above his head or with recumbency. When his symptoms initially started, he saw a chiropractor had an adjustment. This did not help. He has not had any other treatment specifically for his symptoms. He denies any symptoms in his right upper extremity, fine motor difficulties/droppin g objects, date/balance issues, bowel or bladder changes. He presents today with a recent cervical MRI on CD. DES BAI PA-C [address] [place] [address], [phone], [facility] 02/14/2018 12:41:31 04/07/2018 text/html I am seeing Mr. Mcdaniels in follow up today. Mr. Mcdaniels is a 52 year old man with a history of neck pain and left arm C7 radiculopathy. He presented to clinic with a MRI showing C6/7 disc herniation causing severe left neuroforaminal stenosis and C7 nerve compression. We sent him for physical therapy as he wanted to exhaust all conservative management and he returns today for follow up. Overall, his symptoms have improved with now only intermittent left arm pain into the second and third digit. His symptoms are worse with lifting his arm above his head, sleeping on his left side, or bending his head to the left. He denies any weakness in his left arm. PATRICK CHAVEZ JR, MD [address] [place] [address] [place], [address], [facility] 04/07/2018 09:15:33
[2024-11-09 08:09] LABS: Hematocrit 43.0 % (42.0-52.0); Hemoglobin 14.7 g/dL (14.1-18.0); Immature Granulocytes % 0.6 %; Mean Corpuscular HGB Conc 34.2 g/dL (31.8-35.4); Mean Corpuscular Hemoglobin 31.5 pg (27.0-31.2); Mean Corpuscular Volume 92.1 fl (80-94); Nucleated Red Blood Cells % 0 %; Platelet Count 229 K/mm3 (142-424); Red Blood Count 4.67 M/mm3 (4.60-6.20); Red Cell Distribution Width-SD 42.3 fL; White Blood Count 6.4 K/mm3 (4.8-10.8)
[2024-11-09 08:30] LABS: Alanine Aminotransferase 23 U/L (12-78); Albumin Level 4.3 g/dl (3.5-5.0); Albumin/Globulin Ratio 2.0 (1.1-1.8); Alkaline Phosphatase 48 U/L (38-126); Anion Gap 13.4 mEq/L (5-15); Aspartate Amino Transferase 24 U/L (17-59); Bilirubin,Total 0.9 mg/dl (0.2-1.3); Blood Urea Nitrogen 13 mg/dl (9-20); Calcium 9.5 mg/dl (8.4-10.2); Carbon Dioxide 33 mmol/L (22.0-30.0); Chloride 96 mmol/L (98-107); Cholesterol 183 mg/dl (140-200); Creatinine,Serum 0.80 mg/dl (0.66-1.25); Estimated Glomerular Filt Rate 98 ml/min (>60); GFR (African American) 119 ML/MIN (>60); Globulin 2.2 g/dL (1.3-3.2); Glucose 93 mg/dl (74-100); HDL Cholesterol 74 mg/dl (40-60); Potassium 3.4 mmoL/L (3.5-5.1); Sodium 139 mmol/L (136-145); Total Protein,Serum 6.5 g/dl (6.3-8.2); Triglycerides 152 mg/dl (30-150)
[2024-11-09 08:47] LABS: T4 (Thyroxine) 6.3 ug/dl (5.53-11.0)
[2024-11-09 09:01] LABS: Thyroid Stimulating Hormone 2.75 uIU/mL (0.465-4.68)
[2024-11-09 11:19] LABS: Hepatitis C Ab Qual. W/ RFX NEGATIVE (Negative)
[2024-11-10 08:36] LABS: Hepatitis B Surface Antigen Negative (Negative)
== END 2024-11-09 23:59 | disposition home or self-care (01) ==
LOC: LAB 07:30
PROVIDERS: PCP Nurse Practitioner Family; Visit Provider Nurse Practitioner Family
DX: E78.5 Hyperlipidemia, unspecified (principal); Z12.5 Encounter for screening for malignant neoplasm of prostate; Z11.59 Encounter for screening for other viral diseases
CPT/HCPCS: 36415; 80053; 80061; 80074; 84436; 84443; 85025; 87340; 87389; G0103